=== PATIENT | female | born 1990 | race Caucasian/White ===

== ENCOUNTER → 2024-03-18 12:21 | Outpatient (REF) | payer BC, SELFPAY | LOC: PNTC 12:21 | PROVIDERS: ATTENDING PHYSICIAN Student in an Organized Health Care Education/Training Program | DX: O14.90 Unspecified pre-eclampsia, unspecified trimester (principal) | CPT/HCPCS: 76805 ==

== ENCOUNTER → 2024-04-02 10:25 | Outpatient (REF) | payer BC, SELFPAY | LOC: RAD 10:25 | PROVIDERS: ATTENDING PHYSICIAN Obstetrics & Gynecology; FAMILY PHYSICIAN Family Medicine | DX: O03.9 Complete or unspecified spontaneous abortion without complication (principal) | CPT/HCPCS: 76815 ==